=== PATIENT | female | born 1945 | race Caucasian/White ===

== ENCOUNTER 2019-02-06 03:40 | Inpatient (IN) ==
[2019-01-25 08:55] LABS: URINE SOURCE CLEAN CATCH
--- NOTE | 2019-01-25 09:15 | EKG Report ---
Test Performed on : 01/25/2019 08:31:40 AM Test Reason : PAT Blood Pressure : / mmHG Vent. Rate : 063 BPM Atrial Rate : 063 BPM P-R Int : 200 ms QRS Dur : 070 ms QT Int : 374 ms P-R-T Axes : 065 054 069 degrees QTc Int : 382 ms Normal sinus rhythm. Normal ECG When compared with ECG of 19-DEC-2017 09:08, ST no longer depressed in Inferior leads Nonspecific T wave abnormality no longer evident in Inferior leads Confirmed by Waqas LEPE, Malick Mahoney ([id number]) on 01/26/2019 7:41:35 AM
[2019-01-25 09:20] LABS: BASO# 0.03 X1000 (0.0-0.2); BASO% 0.6 % (0.0-0.8); EOS# 0.16 X1000 (0.0-0.7); EOS% 3.3 % (0.0-10.0); HEMATOCRIT 42.6 % (37.0-47.0); HEMOGLOBIN 13.5 g/dL (12.0-16.0); LYMPH# 1.54 X1000 (1.2-3.4); LYMPH% 32.2 % (20.5-51.1); MCH 29.4 PG (27-31); MCHC 31.7 g/dL (33-37); MCV 92.8 FL (81-99); MONO# 0.48 X1000 (0.11-0.59); MPV 10.5 FL (7.4-10.4); NEUT# 2.58 X1000 (1.4-6.5); NEUT% 53.9 % (42.2-75.2); PLT 306 X1000 (130-400); RBC 4.59 XMIL (4.2-5.4); RDW 13.4 % (11.5-14.5); WBC 4.79 X1000 (4.8-10.8)
[2019-01-25 09:27] LABS: BILIRUBIN URINE NEGATIVE (NEGATIVE); BLOOD URINE NEGATIVE (NEGATIVE); COLOR YELLOW; GLUCOSE URINE NEGATIVE (NEGATIVE); KETONE URINE NEGATIVE (NEGATIVE); LEUKOCYTES URINE NEGATIVE (NEGATIVE); NITRITE URINE NEGATIVE (NEGATIVE); PH URINE 5.5; PROTEIN URINE NEGATIVE (NEGATIVE); SP GRAVITY URINE 1.015; TURBIDITY URINE CLEAR (CLEAR); UROBILINOGEN URINE NORMAL (NORMAL)
[2019-01-25 09:30] LABS: AGAP 9; ALBUMIN 4.5 g/dL (3.5-5.0); BUN 22 mg/dL (8-22); CALCIUM 9.3 mg/dL (8.8-10.2); CHLORIDE 103 mmol/L (98-107); COSMO 281; CREATININE 0.9 mg/dL (0.5-0.9); ESTIMATED GFR > 60; GLUCOSE 71 mg/dL (70-104); POTASSIUM 4.3 mmol/L (3.5-5.1); SODIUM 140 mmol/L (136-145); TCO2 28 mmol/L (25-35)
[2019-01-25 09:31] LABS: UR EPITHELIAL CELLS <10 /HPF (<10); URINE BACTERIA NEGATIVE /HPF; URINE RBC <10 /HPF (<10); URINE WBC <10 /HPF (<10)
[2019-01-25 09:37] LABS: HEMOGLOBIN A1C 5.2 % (4.8-6.0)
[2019-01-25 09:47] LABS: INR 1.01; PROTIME 13.4 Seconds (11.0-16.0); PTT 26.8 Seconds (22.3-41.8)
[2019-02-06] MEDS ORDERED: COLACE ONE (08:37)
[2019-02-06] MEDS ORDERED: REGLAN ONE (08:37)
[2019-02-06] MEDS ORDERED: PEPCID ONE (08:37)
[2019-02-06] MEDS ORDERED: CELEBREX ONE (08:38)
[2019-02-06] MEDS ORDERED: LR 1,000 ML ONE (08:38)
[2019-02-06] MEDS ORDERED: KEFZOL 1 GM/D5W 1 GM/50 ML IVPB ONE (08:38)
[2019-02-06] MEDS ORDERED: LYRICA ONE (08:38)
[2019-02-06] MEDS ORDERED: MARCAINE 0.25% PF ONE (10:31)
[2019-02-06] MEDS ORDERED: SODIUM CHLORIDE 0.9% ONE (10:31)
[2019-02-06] MEDS ORDERED: DURAMORPH ONE (10:31)
[2019-02-06] MEDS ORDERED: TORADOL ONE (10:31)
[2019-02-06] MEDS ORDERED: CYKLOKAPRON 1,000 MG/NS 1,000 MG/100 ML IVPB ONE (10:31)
[2019-02-06] MEDS ORDERED: EXPAREL 1.3% ONE (10:32)
[2019-02-06] MEDS ORDERED: DIPRIVAN 1% 500 MG/50 ML BOTTLE ONE (10:37)
[2019-02-06] MEDS ORDERED: FENTANYL ONE (10:41)
[2019-02-06] MEDS ORDERED: XYLOCAINE-MPF 2% ONE (10:42)
[2019-02-06] MEDS ORDERED: OFIRMEV 1000 MG/ISOTONIC SOLN 1,000 MG/100 ML BOTTLE ONE (13:02)
[2019-02-06] MEDS ORDERED: DECADRON ONE (13:02)
[2019-02-06] MEDS ORDERED: ZOFRAN ONE (13:02)
[2019-02-06 13:09] LABS: URINE SOURCE CATH
[2019-02-06 13:14] LABS: BILIRUBIN URINE NEGATIVE (NEGATIVE); BLOOD URINE NEGATIVE (NEGATIVE); COLOR STRAW; GLUCOSE URINE NEGATIVE (NEGATIVE); KETONE URINE NEGATIVE (NEGATIVE); LEUKOCYTES URINE NEGATIVE (NEGATIVE); NITRITE URINE NEGATIVE (NEGATIVE); PH URINE 7.5; PROTEIN URINE NEGATIVE (NEGATIVE); SP GRAVITY URINE 1.012; TURBIDITY URINE CLEAR (CLEAR); UROBILINOGEN URINE NORMAL (NORMAL)
[2019-02-06 13:15] LABS: UR EPITHELIAL CELLS <10 /HPF (<10); URINE BACTERIA NEGATIVE /HPF; URINE RBC <10 /HPF (<10); URINE WBC <10 /HPF (<10)
[2019-02-06] MEDS ORDERED: MORPHINE IV PRN ×3 (15:00)
[2019-02-06] MEDS ORDERED: ZOFRAN IV PRN (15:00)
[2019-02-06] MEDS ORDERED: OXY IR PO PRN (15:00)
[2019-02-06] MEDS ORDERED: ZOFRAN PO PRN (15:00)
[2019-02-06] MEDS ORDERED: NS 1,000 ML ONE (15:10)
--- NOTE | 2019-02-06 15:16 | Diag Imaging Result Doc PS360 ---
EXAM: XRAY HIP UNILATERAL RT 02/06/2019 HISTORY: post op right anterior hip TECHNIQUE: Right hip two views COMMENT: There is a total hip arthroplasty. There is no evidence of acute fracture or other definite bony abnormalities. IMPRESSION: No acute bony abnormality. Postsurgical change. Electronically signed by Kenrick Iniguez 02/06/2019 3:13 PM
[2019-02-06] MEDS ORDERED: MILK OF MAGNESIA PO PRN (16:00)
[2019-02-06] MEDS: OXY IR PO PRN (16:33)
[2019-02-06] MEDS: NS 1,000 ML IV SCH (16:36)
--- NOTE | 2019-02-06 17:53 | OPERATIVE NOTE ---
PROCEDURE DATE: 02/06/2019 PREOPERATIVE DIAGNOSIS: Right femoral head avascular necrosis. POSTOPERATIVE DIAGNOSIS: Right femoral head avascular necrosis. PROCEDURE: Right total hip arthroplasty through a direct anterior approach. SURGEON: Roger Staley MD. RN EMERGENCY: MACIE Ricketts whose presence was needed for retraction and placement of implants. ANESTHESIA: Spinal anesthesia. COMPLICATIONS: None. SPECIMENS: None. DRAINS: None. BLOOD LOSS: 150 mL. IMPLANTS: 1. Biomet G7 acetabular three-hole cup size 50 mm with a D-liner. An ArComXL highly cross-linked polyethylene neutral liner, size D-liner was placed for a 36 mm head. 2. Biomet taper lock complete femoral stem, size 9, standard offset. 3. A 36 mm Biomet cobalt chrome femoral head with a +3 neck. INDICATIONS FOR PROCEDURE: Ms. Verma is a 73-year-old lady who has been followed in the clinic for complaint of right hip pain. 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 Given these findings, the patient decided to proceed with right total hip arthroplasty as she had exhausted conservative treatment. Risks, benefits, alternative therapies were discussed with patient and regarding surgery. Risks of surgery include, but not limited to, risks of bleeding, infection, damage to nerves and vessels around the area, continued pain following surgery, need for revision surgery. There is also risk of anesthesia including blood clot, stroke, heart attack, even . Patient understands these risks. All questions were answered. Informed consent was obtained. PROCEDURE IN DETAIL: Ms. Verma was identified by wrist band and greeted in the preop holding area on February 06, 2019. Her right lower extremity which was the operative site was then marked with indelible ink per [facility] protocol. Following this, the patient was transferred back to the operating room for surgery. Upon entering the OR, spinal anesthetic was placed. The patient was then transferred in supine position on the [place] table. Feet were placed into well-padded boot holders. All bony prominences were well padded. At this time, the right lower extremity was then prepped and draped in routine sterile fashion. Formal time-out was performed, confirming correct patient, procedure, operative site, operative side, administration of perioperative antibiotics. Everyone was in agreement. Patient received 2 g Ancef prior to incision. A knife was used to make a standard direct anterior approach through a longitudinal incision about 10 cm long. Bovie cautery was then used to obtain hemostasis and dissect down to the tensor fascia muscle. Once it was identified, a knife was used to make a longitudinal split in the tensor fascia. The anterior aspect of the fascia was then elevated from the muscle belly until we feel into the interval between sartorius. Once this was done, a finger was placed down to the level of the saddle of the femoral neck and greater trochanter junction. A blunt Cobra was then placed in this position for retraction. At this time, a hemostat was used to spread in the interval between the sartorius and tensor and the lateral ascending femoral vessels were identified and coagulated using a Bovie and hemostats. Following this, we further developed our interval down to the level of capsule. A second blunt Cobra was placed along the inferior neck. At this time, a long Bovie was used to elevate the pericapsular fat up off the fascia. A sharp 90 degree Hohmann was placed over the anterior lip of the acetabulum. A Fernández was used to clean off the capsule. At this time we had excellent visualization of our capsule. Bovie was then used to make an inverted T capsulotomy. Number 1 Vicryl suture was used to tag each corner of the capsule. At this time, the superior and inferior leaf of the capsule were then fully elevated off the femoral neck and blunt covers were then replaced intracapsular. A sagittal saw blade was used to make our femoral neck cut in routine fashion about 1 cm proximal to the lesser trochanter. Once this was done, corkscrew was used to remove the femoral head. We then externally rotated the femur and placed our sharp bent Hohmann over the anterior-superior lip of the acetabulum. A second sharp Hohmann was placed along the posterior wall of the acetabulum and a third blunt Cobra was placed just over the transverse acetabular ligament. We had excellent visualization of the glenoid at this time. A long knife handle was used to remove the remaining labrum from around the acetabulum as well as the cotyloid fossa. A curette was used to remove remnants of ligamentum from the cotyloid fossa. When we were done with this, we then began with sequential reaming, starting with a 44 mm head for medialization. We then reamed up to a 49 mm head. Fluoroscopy was brought in while reaming our last reamer to ensure appropriate medialization and positioning of the reamer. We were satisfied with this. A size 50 mm trial was then impacted in position under fluoroscopy. We had a good press fit with this. A 50 mm G7 cup was then opened on the back table and assembled in routine fashion. We then impacted our cup in routine fashion and had excellent press fit. Fluoroscopy was used to confirm our [*] as well as inclination. We were satisfied with position of the cup. At this time, we then turned our attention to the femoral exposure. Blunt Cobra was placed just medial to the femur, retracting it out, pushing out laterally. Bovie was then used to begin releasing our ligaments off the medial aspect of the greater trochanter. A [*] was placed through the posterior capsule in this area and a sharp Hohmann was placed for initial retraction. Once our capsular release was done off the greater trochanter, the 2 pronged femoral elevator was then placed over the greater trochanter at the bare spot. A bone hook was then used to grab the calcar bone and the leg was extended and adducted while pulling the femur up into the wound. We had excellent exposure with this. At this time, rongeur and cookie cutter were then used to remove any remaining superior lateral femoral neck. A canal finer was then placed. We then began with sequential broaching starting with a size 4, going up to a size 9. Patient had excellent press fit with a size 9 broach. A standard neck with +0 head were then trialed and x-ray was taken, confirming intramedullary placement of the stem, as well as her leg lengths. The patient was found to have a little bit of play. When we were satisfied with the position of things, we decided open a size 9 Taperloc complete stem. Our trials were removed. Then 20 mL of our Exparel cocktail were then injected along the posterior capsule, inferior capsule, and around the acetabulum in routine fashion. Please note, our acetabular neutral polyethylene liner was placed and impacted in position prior to exposure of the femur. A Pulsavac energy professional was used to irrigate out the femoral canal. We then placed our size 9 stem in routine fashion. It again had excellent press fit with no signs of the fracture or subsidence into the canal. At this time, we then again trialed a standard neck with a +0 ball. The patient was found to have a little bit of shucking in the femur and so we decided to open a +3, 36 mm [place] chromium head. This was impacted in position in routine fashion. The hip was again reduced and brought through range of motion and found to have no signs of impingement in hip extension and full external rotation. She had good range of motion of the neck. At this time the remaining Exparel cocktail was injected along the anterior capsule, indirect head of the rectus, sartorius tensor fascia, and vastus lateralis. The subcutaneous tissue was injected with our local anesthetic as well. At this time our 0.35% Betadine solution was placed in the wound and allowed to soak for 3 minutes. Once this done, the hip was then copiously irrigated with normal saline. We then closed capsule anteriorly with #1 Vicryl suture. The tensor fascia was then closed with running locking 0 Vicryl suture. Then 2-0 Vicryl sutures were used for subcutaneous tissue closure, followed by 4-0 Monocryl for skin closure. Dermabond, Prineo dressing was then applied. We then placed island Tegaderm dressings on the hip. At this time, patient was then woken up, transferred to her hospital stretcher, taken to recovery in stable condition. There were no acute complications during the procedure. All sponge and sharp counts were correct at the conclusion of procedure.
[2019-02-06] MEDS ORDERED: CYKLOKAPRON 1,000 MG in NS 100 ML IV ONE (18:30)
[2019-02-06] MEDS: ULTRAM PO SCH (19:47)
[2019-02-06] MEDS: TYLENOL PO SCH (20:06)
[2019-02-07] MEDS: CELEBREX PO SCH ×2 (00:37→10:14)
[2019-02-07] MEDS: KEFZOL 1 GM/D5W 1 GM/50 ML IVPB IV SCH ×2 (00:37→10:22)
[2019-02-07] MEDS: COLACE PO SCH ×2 (00:39→10:15)
[2019-02-07] MEDS: LYRICA PO SCH ×2 (00:39→10:15)
[2019-02-07] MEDS: PRAVACHOL PO SCH (00:39)
[2019-02-07] MEDS: ULTRAM PO SCH ×4 (00:39→17:28)
[2019-02-07] MEDS: ASTELIN NASAL SPRAY NAS SCH ×2 (00:53→10:18)
[2019-02-07] MEDS: TYLENOL PO SCH ×3 (03:23→17:28)
[2019-02-07] MEDS ORDERED: LOVENOX SUBQ SCH (06:00)
[2019-02-07 07:03] LABS: HEMATOCRIT 22.1 % (37.0-47.0)
[2019-02-07 07:09] LABS: AGAP 12; BUN 28 mg/dL (8-22); CALCIUM 8.6 mg/dL (8.8-10.2); CHLORIDE 107 mmol/L (98-107); COSMO 289; CREATININE 0.9 mg/dL (0.5-0.9); ESTIMATED GFR > 60; GLUCOSE 114 mg/dL (70-104); POTASSIUM 4.7 mmol/L (3.5-5.1); SODIUM 142 mmol/L (136-145); TCO2 23 mmol/L (25-35)
[2019-02-07] MEDS: NS 1,000 ML IV SCH (07:53)
[2019-02-07] MEDS ORDERED: DECADRON IV ONE (09:00)
[2019-02-07] MEDS ORDERED: NON-FORMULARY MED (Lansoprazole 30 MG) PO SCH (09:00)
[2019-02-07] MEDS ORDERED: PATIENT'S OWN MED PO SCH (09:00)
[2019-02-07] MEDS ORDERED: NON-FORMULARY MED (Celecoxib [Celebrex] 200 MG) PO SCH (09:00)
--- NOTE | 2019-02-07 09:23 | ORTHOPAEDICS PROGRESS NOTE ---
DATE: 02/07/2019 SUBJECTIVE: No acute events overnight. The patient has had some sundowning and dementia per nurses report as well as of my interview with her this morning. She is not oriented to place. She states pain is well controlled. Nurse says she was trying to get out of bed last night. She did tolerate a diet. No other complaints. OBJECTIVE: Hematocrit is 22. Vital signs are stable. Examination of right lower extremity shows surgical dressing is clean, dry, and intact. Patient has mild swelling in the thigh, however, it is soft and compressible. No fluctuance or drainage from the wound. Motor is intact EHL, tibialis anterior, gastrocsoleus complex. Sensation intact to light touch L3-S1. Dorsalis pedis pulse palpable. IMAGING: Postoperative AP and lateral of the right hip were reviewed demonstrating good position of hardware with no periprosthetic fracture or dislocation. ASSESSMENT: 73-year-old female status post right total hip arthroplasty. Postoperative day 1. PLAN: 1. The patient is to be weightbearing as tolerated. Anterior hip precautions. Physical therapy to mobilize and work on gait training. 2. Aspirin for deep venous thrombosis prophylaxis. 3. Discontinue Reyes catheter. 4. Ice to right hip as needed for pain. 5. Acute blood loss anemia secondary to surgery. Patient has no signs of active bleeding. She is not tachycardic and her blood pressure is stable. She is denies any symptoms of dizziness or lightheadedness at this time. We will get her to work with physical therapy today. If she has any orthostatics symptoms, we will plan on transfusing. However, if she does well with therapy and remains asymptomatic we will treat this conservatively. DISPOSITION: I will plan to discharge home either this afternoon or tomorrow, pending mobilization with physical therapy and monitoring of her hematocrit. The patient will follow up with me in clinic in 2 weeks at her scheduled appointment.
[2019-02-07] MEDS: ASPIRIN PO SCH (10:14)
[2019-02-07] MEDS: CALTRATE 600 PO SCH (10:14)
[2019-02-07] MEDS: PEPCID PO SCH (10:15)
[2019-02-07] MEDS: VITAMIN D PO SCH (10:15)
[2019-02-07] MEDS: PRILOSEC PO SCH (10:15)
[2019-02-07] MEDS: SINGULAIR PO SCH (10:15)
[2019-02-07] MEDS: ARICEPT PO SCH (10:16)
[2019-02-08] MEDS: ASTELIN NASAL SPRAY NAS SCH ×2 (02:35→09:23)
[2019-02-08] MEDS: ULTRAM PO SCH ×4 (02:36→16:44)
[2019-02-08] MEDS: CELEBREX PO SCH ×2 (02:37→09:24)
[2019-02-08] MEDS: LYRICA PO SCH ×2 (02:37→09:23)
[2019-02-08] MEDS: COLACE PO SCH ×2 (02:37→09:24)
[2019-02-08] MEDS: PRAVACHOL PO SCH (02:37)
[2019-02-08] MEDS: TYLENOL PO SCH ×4 (02:38→16:44)
[2019-02-08 04:02] LABS: HEMATOCRIT 20.9 % (37.0-47.0); HEMOGLOBIN 6.4 g/dL (12.0-16.0)
[2019-02-08] MEDS: OXY IR PO PRN (04:06)
[2019-02-08] MEDS: PRILOSEC PO SCH ×2 (04:06→06:35)
[2019-02-08] MEDS: NS 1,000 ML IV SCH (06:36)
[2019-02-08] MEDS ORDERED: NS 500 ML IV ONE (07:36)
[2019-02-08] MEDS: ASPIRIN PO SCH (09:24)
[2019-02-08] MEDS: VITAMIN D PO SCH (09:24)
[2019-02-08] MEDS: ARICEPT PO SCH (09:24)
[2019-02-08] MEDS: CALTRATE 600 PO SCH (09:24)
[2019-02-08] MEDS: PEPCID PO SCH (09:24)
--- NOTE | 2019-02-08 09:24 | ORTHOPAEDICS PROGRESS NOTE ---
DATE: 02/08/2019 SUBJECTIVE: No acute events overnight. Patient rested well. She has had some postoperative dementia and has not been oriented to time or place. She worked well with physical therapy yesterday and ambulated over 250 feet. Her pain is well controlled. She is ready to get home. OBJECTIVE: Hematocrit is 21. VITAL SIGNS: Heart rate is 81, respiratory rate 14, blood pressure 120/56, O2 sat 100% on room air. EXTREMITIES: Examination of the right lower extremity shows surgical dressing clean, dry and intact. Patient has some ecchymosis and mild swelling around her surgical site incision. No sign of infection or wound dehiscence. Thigh is soft and compressible. Motor intact quadriceps, hamstrings, EHL, tibialis anterior, gastrocsoleus complex. Sensation intact to light touch L3-S1. Dorsals pedis pulse palpable. ASSESSMENT: 73-year-old female status post right total hip arthroplasty, postop day 2. PLAN: 1. Continue physical therapy to mobilize, weightbearing as tolerated. Anterior hip precautions. 2. Acute blood loss anemia. Hematocrit went from 22 to 21. She does remain asymptomatic; however, given her age, we will go ahead and transfuse her with 2 units of packed red cells prior to discharge. We will draw a hemoglobin and hematocrit after blood is given. 3. Ice to the right lower extremity as needed for pain. 4. Aspirin 325 mg daily for DVT prophylaxis. 5. Disposition: Plan is to discharge patient home with home health physical therapy. If she is stable and doing well after transfusion this morning then she will be okay to go home this afternoon. I will see her back in the clinic in 2 weeks.
[2019-02-08] MEDS: SINGULAIR PO SCH (09:27)
[2019-02-08 17:35] VITALS: BP 127/60
[2019-02-08 18:14] LABS: HEMATOCRIT 31.7 % (37.0-47.0); HEMOGLOBIN 10.1 g/dL (12.0-16.0)
--- NOTE | 2019-02-10 06:03 | DISCHARGE SUMMARY ---
ADMISSION DATE: 02/06/2019 DISCHARGE DATE: 02/08/2019 ADMITTING DIAGNOSIS: Right hip avascular necrosis. DISCHARGE DIAGNOSIS: Right hip avascular necrosis. PROCEDURE: Right total hip arthroplasty. CONSULTATIONS: None. COMPLICATIONS: None. BRIEF HOSPITAL COURSE: Ms. Verma is a 73-year-old lady who has been followed in clinic for complaints of right hip pain. [*]stating avascular necrosis of her femoral head with subchondral collapse. Given these findings, in fact, she has failed conservative treatment, she wished to proceed with total hip replacement. Risks, benefits, and alternative therapies were discussed with patient regarding surgery. All questions were answered. Informed Consent was obtained. The patient presented to [facility] 02/[facility]2019 to undergo the above procedure. There were no complications during surgery. Following surgery, patient was transferred up to the floor for recovery. The patient did well overnight on the night of surgery. She did have some postoperative confusion and dementia. Her hematocrit on postoperative day 1, had dropped to 22. However, she remained asymptomatic. She worked well with physical therapy on postoperative day 2, but decision was made to keep her overnight due to her confusion and monitor her blood count. The following day on postoperative day 2, her hematocrit dropped from 22 to 21. She again remained asymptomatic. However, given the drop, decision was made to transfuse her with 2 units of packed red blood cells, which she had on postop day 2. She ambulated again with physical therapy over 250 feet on postoperative day 2. After the [*]was given, her post transfusion hematocrit was 30. At this time, patient had met physical therapy goals. Vital signs were stable. She was tolerating a diet, and was pain free. Decision was thus made to discharge the patient home on 02/08/2019. DISPOSITION: Discharged home. CONDITION: Stable. ACTIVITY: Patient is weightbearing as tolerated right lower extremity. Anterior hip precautions. MEDICATIONS: 1. Iron 325 mg t.i.d. 2. Aspirin 325 mg once daily for 6 weeks. 3. Tramadol. 4. Tylenol. 5. Zofran. 6. Colace. 7. Lyrica. 8. Oxycodone. DISCHARGE INSTRUCTIONS: 1. Patient is to keep her surgical dressing clean, dry, and intact x1 day. Following this, she can remove the dressing and wash her incision site with soap and water. She was instructed not to soak in a bath or submerge in a pool. 2. Patient to take aspirin for DVT prophylaxis as instructed for 6 weeks. 3. Patient should work with home health physical therapy and instructed on gait training and mobilization. 4. She is to follow up with me in clinic in 2 weeks at her scheduled appointment. 5. The patient is to return to the ER with any acute onset chest pain, shortness of breath, fever, or drainage from surgical incision.
== END 2019-02-08 18:48 | disposition home health service (06) | DRG 470 ==
LOC: SURHOLD 03:40 → 4N 12:48
PROVIDERS: ADMIT Orthopaedic Surgery Sports Medicine; ATTEND Orthopaedic Surgery Sports Medicine